=== PATIENT | female | born 1940 | race Caucasian/White ===

== ENCOUNTER 2018-10-21 20:17 | Emergency (ER) | payer MEDICARE, MEDICAID ==
[~2018-10-21 20:17] MED LIST: AMLO10TA4 PO; GABA100C PO; HYDR-523 PO; MEGE800O PO; MIRT15TA PO
== END 2018-10-21 21:17 | disposition left against medical advice (07) ==
LOC: ER 20:17
DX: Z53.21 Procedure and treatment not carried out due to patient leaving prior to being seen by health care provider (principal)

== ENCOUNTER 2018-12-13 10:44 | Inpatient (IN) | payer MEDICARE, MEDICAID ==
[~2018-12-13] VITALS: Ht 121.9 cm; Wt 54.9 kg
[2018-12-13 11:56] LABS: BG BASE EXCESS -6.7 mmol/L (-2.0-2.0); BG CARBOXYHEMOGLOBIN 0.9 % (0.5-1.5); BG DEOXYHEMOGLOBIN 4.5 % (0.0-5.0); BG HCO3 ACT 15.9 mmol/L (22.0-26.0); BG METHEMOGLOBIN 0.1 % (0.0-1.5); BG OXYGEN SATURATION 95.5 % (92.0-98.5); BG OXYHEMOGLOBIN 94.5 % (94.0-97.0); BG PCO2 24.5 mmHg (35.0-45.0); BG PO2 77.5 mmHg (75.0-100.0); BG SAMPLE SITE RIGHT BRACHIAL; BG TOTAL HEMOGLOBIN 12.5 g/dL (12.0-18.0); BG VENT MODE ROOM AIR
[2018-12-13 12:01] LABS: BASOPHILS % 0.3 % (0.0-2.0); EOSINOPHILS % 0.5 % (0.0-5.0); HEMATOCRIT. 37.4 % (36.0-48.0); HEMOGLOBIN. 12.2 g/dL (12.0-16.0); LYMPHOCYTES % 23.6 % (20.0-50.0); MEAN CORPUSCULAR HEMOGLOBIN 30.7 pg (28.0-32.0); MEAN PLATELET VOLUME 9.6 fl (7.4-10.4); MONOCYTES % 7.7 % (2.0-8.0); NEUTROPHILS % 67.9 % (40.0-76.0); PLATELET 283 x1000/uL (130-400); RED BLOOD CELL COUNT 3.98 mill/uL (4.2-5.4); RED CELL DISTRIBUTION WIDTH 17.3 % (11.6-14.6)
[2018-12-13 12:04] LABS: CHLORIDE 113 mEq/L (98-107)
[2018-12-13 12:08] LABS: ETHANOL BLOOD < 10 mg/dL
[2018-12-13 12:09] LABS: CLARITY URINE CLOUDY (CLEAR); COLOR URINE YELLOW (YELLOW); KETONES URINE TRACE (NEGATIVE); LEUKOCYTE ESTERASE URINE NEGATIVE (NEGATIVE); NITRITE URINE NEGATIVE (NEGATIVE); OCCULT BLOOD URINE 2+ (NEGATIVE); PH URINE 5.5 (4.5-8.0); PROTEIN URINE 2+ (NEGATIVE); SPECIFIC GRAVITY URINE 1.023 (1.005-1.030)
[2018-12-13] MEDS ORDERED: AZITHROMYCIN 500 MG in DEXT 5% WATER 250 ML IV STA (13:27)
[2018-12-13] MEDS ORDERED: CEFTRIAXONE 1 G PREMIX 50 ML IV STA (13:27)
[2018-12-13 14:06] LABS: *BARBITURATES SCREEN URINE NEGATIVE (NEGATIVE); *BENZODIAZEPINES SCREEN URINE NEGATIVE (NEGATIVE); *COCAINE SCREEN URINE NEGATIVE (NEGATIVE); PHENCYCLIDINE URINE SCREEN NEGATIVE (NEGATIVE)
[2018-12-13 14:10] LABS: OPIATES URINE SCREEN NEGATIVE (NEGATIVE)
[2018-12-13 14:11] LABS: CANNABINOID URINE SCREEN PRESUMTIVE POSITIVE (NEGATIVE); METHADONE URINE SCREEN NEGATIVE (NEGATIVE)
[2018-12-13] MEDS ORDERED: ACETAMINOPHEN 650MG SUPP PR PRN (16:30)
[2018-12-13] MEDS ORDERED: CLONIDINE 0.1MG TABLET PO PRN (16:30)
[2018-12-13] MEDS ORDERED: ONDANSETRON HCL 4MG/2ML INJ IV PRN (16:30)
[2018-12-13] MEDS ORDERED: MAGNESIUM/ALUMINUM HYDROXIDE/SIMETHICONE 30ML UDC PO PRN (16:30)
[2018-12-13] MEDS ORDERED: LORAZEPAM 0.5MG TABLET PO PRN (16:30)
[2018-12-13] MEDS ORDERED: HYDROCODONE/ACETAMINOPHEN 5/325MG TABLET PO PRN (16:30)
[2018-12-13] MEDS ORDERED: DEXTROSE 50% WATER 50ML SYRINGE IV PRN (16:30)
[2018-12-13] MEDS ORDERED: IPRATROPIUM/ALBUTEROL 0.5-3(2.5)MG/3ML NEB INH PRN (16:30)
[2018-12-13] MEDS ORDERED: ACETAMINOPHEN 650MG/20.3ML UDC GT PRN (16:30)
[2018-12-13] MEDS ORDERED: HYDRALAZINE 20MG/ML VIAL IV NR (16:30)
[2018-12-13] MEDS ORDERED: ACETAMINOPHEN 325MG TABLET PO PRN (16:30)
[2018-12-13] MEDS ORDERED: DOCUSATE SODIUM 100MG CAPSULE PO PRN (16:30)
[2018-12-13] MEDS ORDERED: GUAIFENESIN 200MG/10ML SUGAR FREE UDC PO PRN (16:30)
[2018-12-13] MEDS ORDERED: HYDRALAZINE 20MG/ML VIAL IV PRN (16:30)
[2018-12-13] MEDS ORDERED: DIPHENHYDRAMINE 50MG/ML VIAL IV PRN (16:30)
[2018-12-13] MEDS ORDERED: LEVOFLOXACIN 500MG PREMIX 100 ML IV SCH (20:15)
[2018-12-13] MEDS ORDERED: AMLODIPINE 10MG TABLET PO SCH (20:15)
[2018-12-13] MEDS: INSULIN LISPRO 100 UNITS/ML SUBCUT SCH (20:57)
[2018-12-13] MEDS ORDERED: NA PHOS,M-B/NA PHOS,DI-BA ENEMA 118ML PR PRN (21:00)
[2018-12-13] MEDS: BLOOD SUGAR DIAGNOSTIC STRIP TEST SCH (21:07)
[2018-12-13] MEDS ORDERED: BISACODYL 10MG SUPP PR SCH (23:00)
[2018-12-13] MEDS ORDERED: FAMOTIDINE 20MG/2ML VIAL IV SCH (23:00)
[2018-12-14] VITALS: BP 101/66
[2018-12-14] MEDS: MIRTAZAPINE 15MG TABLET PO SCH ×2 (01:08→23:20)
[2018-12-14] MEDS: DEXT 5%/0.45% NACL 1000ML 1,000 ML IV SCH ×3 (01:44→23:11)
[2018-12-14] MEDS: LEVOFLOXACIN 250MG PREMIX 50 ML IV SCH ×2 (01:44→23:11)
[2018-12-14 03:07] VITALS: BP 146/75
[2018-12-14 05:52] LABS: CHLORIDE 110 mEq/L (98-107)
[2018-12-14] MEDS ORDERED: NA PHOS,M-B/NA PHOS,DI-BA ENEMA 118ML PR ONE (06:00)
[2018-12-14 06:02] LABS: LDL CHOLESTEROL 46 mg/dL (5-100)
[2018-12-14 06:03] LABS: BASOPHILS % 0.1 % (0.0-2.0); EOSINOPHILS % 0.1 % (0.0-5.0); HEMATOCRIT. 39.5 % (36.0-48.0); HEMOGLOBIN. 12.9 g/dL (12.0-16.0); MEAN CORPUSCULAR HEMOGLOBIN 30.7 pg (28.0-32.0); MEAN CORPUSCULAR VOLUME 93.9 fL (81.0-99.0); MONOCYTES % 6.1 % (2.0-8.0); NEUTROPHILS % 80.7 % (40.0-76.0); PLATELET 275 x1000/uL (130-400); RED BLOOD CELL COUNT 4.21 mill/uL (4.2-5.4); RED CELL DISTRIBUTION WIDTH 17.1 % (11.6-14.6)
[2018-12-14 06:04] LABS: HDL CHOLESTEROL 22 mg/dL (40-59); T4 FREE 1.56 ng/dL (0.76-1.46)
[2018-12-14] MEDS: BLOOD SUGAR DIAGNOSTIC STRIP TEST SCH ×4 (07:02→21:00)
[2018-12-14] MEDS: INSULIN LISPRO 100 UNITS/ML SUBCUT SCH ×4 (07:40→21:00)
[2018-12-14 08:00] VITALS: BP 136/74
[2018-12-14] MEDS ORDERED: ENOXAPARIN 40MG/0.4ML SYR SUBCUT SCH (09:00)
[2018-12-14] MEDS: DOCUSATE SODIUM 250MG CAPSULE PO SCH (09:16)
[2018-12-14] MEDS: FAMOTIDINE 20MG/2ML VIAL IV SCH (09:16)
[2018-12-14] MEDS: AMLODIPINE 10MG TABLET PO SCH (09:16)
[2018-12-14] MEDS: IPRATROPIUM/ALBUTEROL 0.5-3(2.5)MG/3ML NEB INH SCH ×3 (10:12→21:50)
[2018-12-14 12:00] VITALS: BP_SYST 109; BP_SYST 118; BP_DIAS 62; BP_DIAS 65
[2018-12-14] MEDS ORDERED: LOSA100T32 MT (12:24)
[2018-12-14] MEDS ORDERED: GABA-531 MT (12:24)
[2018-12-14] MEDS ORDERED: PANT40TA4 MT (12:24)
[2018-12-14] MEDS ORDERED: DONE5TAB33 MT (12:24)
[2018-12-14] MEDS ORDERED: CLOP75TA33 MT (12:24)
[2018-12-14] MEDS ORDERED: ATOR-2 MT (12:24)
[2018-12-14] MEDS ORDERED: ISOS30TA6 MT (12:24)
[2018-12-14] MEDS ORDERED: DULO30CA2 MT (12:24)
[2018-12-14] MEDS ORDERED: POTASSIUM CHLORIDE INJ 40 MEQ in DEXT 5% WATER 250 ML IV SCH (15:00)
[2018-12-14 16:00] VITALS: BP 109/65
[2018-12-14] MEDS ORDERED: LEVOFLOXACIN 500MG PREMIX 100 ML IV SCH (16:30)
[2018-12-14] MEDS ORDERED: ENOXAPARIN 60MG/0.6ML SYR SUBCUT NR (17:15)
[2018-12-14 20:00] VITALS: BP 135/98
[2018-12-15] VITALS (46 sets, daily range): BP systolic 29–147; BP diastolic 16–106
[2018-12-15] MEDS: IPRATROPIUM/ALBUTEROL 0.5-3(2.5)MG/3ML NEB INH SCH ×4 (01:31→20:26)
[2018-12-15] MEDS: INSULIN LISPRO 100 UNITS/ML SUBCUT SCH ×3 (07:16→18:20)
[2018-12-15] MEDS: BLOOD SUGAR DIAGNOSTIC STRIP TEST SCH ×4 (07:17→17:50)
[2018-12-15 08:03] LABS: CHLORIDE 109 mEq/L (98-107)
[2018-12-15 08:05] LABS: HEMATOCRIT. 36.7 % (36.0-48.0); HEMOGLOBIN. 11.9 g/dL (12.0-16.0); MEAN CORPUSCULAR VOLUME 95.2 fL (81.0-99.0); MEAN PLATELET VOLUME 10.2 fl (7.4-10.4); PLATELET 273 x1000/uL (130-400); RED BLOOD CELL COUNT 3.85 mill/uL (4.2-5.4); RED CELL DISTRIBUTION WIDTH 17.3 % (11.6-14.6)
[2018-12-15] MEDS: DOCUSATE SODIUM 250MG CAPSULE PO SCH ×2 (09:00→09:24)
[2018-12-15] MEDS: FAMOTIDINE 20MG/2ML VIAL IV SCH (09:23)
[2018-12-15] MEDS: AMLODIPINE 10MG TABLET PO SCH (09:24)
[2018-12-15] MEDS ORDERED: POTASSIUM CHLORIDE INJ 40 MEQ in DEXT 5% WATER 250 ML IV NR (10:30)
[2018-12-15] MEDS: PIPERACILLIN/TAZ 2.25G PREMIX 50 ML IV SCH ×2 (10:46→17:00)
[2018-12-15] MEDS: DEXT 5%/0.45% NACL 1000ML 1,000 ML IV SCH (10:47)
[2018-12-15] MEDS ORDERED: VANCOMYCIN 1 G PREMIX 200 ML IV SCH (12:00)
[2018-12-15 15:08] LABS: PLATELET ESTIMATE NORMAL
[2018-12-15] MEDS ORDERED: ETOMIDATE 2MG/ML 10ML VIAL IV ONE (16:43)
[2018-12-15] MEDS ORDERED: ENOXAPARIN 60MG/0.6ML SYR SUBCUT SCH (18:00)
[2018-12-15] MEDS ORDERED: SODIUM BICARBONATE 8.4% 1 MEQ/ML 50ML SYR IV NR (18:45)
[2018-12-15] MEDS ORDERED: DOPAMINE 800MG PREMIX (DOUBLE) 250 ML IV PRN (18:45)
[2018-12-15] MEDS ORDERED: PHENYLEPHRINE 40 MG in DEXT 5% WATER 246 ML IV PRN (18:45)
[2018-12-15] MEDS ORDERED: EPINEPHRINE 1 MG in SODIUM CHLORIDE 0.9% 249 ML IV PRN (18:45)
[2018-12-15] MEDS ORDERED: NOREPINEPHRINE 32 MG in DEXT 5% WATER 468 ML IV PRN (18:45)
[2018-12-15] MEDS ORDERED: PHENYLEPHRINE 80 MG in DEXT 5% WATER 492 ML IV PRN ×2 (21:00)
[2018-12-15] MEDS ORDERED: CALCIUM CHLORIDE 1GM/10ML SYR IV ONE (21:20)
[2018-12-15] MEDS ORDERED: SODIUM BICARBONATE 8.4% MEQ/ML 50ML VIAL IV ONE (21:20)
[2018-12-15] MEDS ORDERED: EPINEPHRINE 0.1MG/ML (1:10,000) 10ML SYR ONE (21:20)
[2018-12-16] MEDS ORDERED: VANCOMYCIN 500 MG PREMIX 100 ML IV SCH (06:00)
[2018-12-16 07:57] LABS: *AMPHETAMINES SCREEN URINE NEGATIVE (NEGATIVE)
== END 2018-12-15 22:45 | disposition expired | DRG 871 ==
LOC: ER 10:44 → 8WST 13:40 → EDBEDREQTM 13:43 → EDBEDREQ 13:43 → ENRESERV 20:54 → CVICU 12-15 17:25
PROVIDERS: ADMIT Internal Medicine; ATTEND Internal Medicine
PROC: 0BH17EZ Insertion of Endotracheal Airway into Trachea, Via Natural or Artificial Opening (ICD-10-PCS; principal; 2018-12-15)
PROC: 5A12012 Performance of Cardiac Output, Single, Manual (ICD-10-PCS; 2018-12-15)
PROC: 0XH933Z Insertion of Infusion Device into Left Upper Arm, Percutaneous Approach (ICD-10-PCS; 2018-12-15)
PROC: 5A12012 Performance of Cardiac Output, Single, Manual (ICD-10-PCS; 2018-12-15)
PROC: 5A1935Z Respiratory Ventilation, Less than 24 Consecutive Hours (ICD-10-PCS; 2018-12-15)
PROC: 0YH Anatomical Regions, Lower Extremities, Insertion (ICD-10-PCS; 2018-12-15)
PROC: 3E0A3GC Introduction of Other Therapeutic Substance into Bone Marrow, Percutaneous Approach (ICD-10-PCS; 2018-12-15)
PROC: 3E0A3GC Introduction of Other Therapeutic Substance into Bone Marrow, Percutaneous Approach (ICD-10-PCS; 2018-12-15)
DX: A41.9 Sepsis, unspecified organism (principal); G93.41 Metabolic encephalopathy; J18.1 Lobar pneumonia, unspecified organism; R65.21 Severe sepsis with septic shock; I42.9 Cardiomyopathy, unspecified; I50.22 Chronic systolic (congestive) heart failure; N39.0 Urinary tract infection, site not specified; E11.51 Type 2 diabetes mellitus with diabetic peripheral angiopathy without gangrene; E11.65 Type 2 diabetes mellitus with hyperglycemia; E78.00 Pure hypercholesterolemia, unspecified; E86.0 Dehydration; F03.90 Unspecified dementia, unspecified severity, without behavioral disturbance, psychotic disturbance, mood disturbance, and anxiety; F17.210 Nicotine dependence, cigarettes, uncomplicated; I11.0 Hypertensive heart disease with heart failure; I16.0 Hypertensive urgency; I25.10 Atherosclerotic heart disease of native coronary artery without angina pectoris; K80.20 Calculus of gallbladder without cholecystitis without obstruction; I27.20 Pulmonary hypertension, unspecified; I46.9 Cardiac arrest, cause unspecified; K22.9 Disease of esophagus, unspecified; K57.30 Diverticulosis of large intestine without perforation or abscess without bleeding; K59.00 Constipation, unspecified; Z79.02 Long term (current) use of antithrombotics/antiplatelets; Z79.899 Other long term (current) drug therapy; Z86.73 Personal history of transient ischemic attack (TIA), and cerebral infarction without residual deficits; Z89.512 Acquired absence of left leg below knee; Z98.61 Coronary angioplasty status; Z89.511 Acquired absence of right leg below knee; Z89.611 Acquired absence of right leg above knee
CPT/HCPCS: 31500; 36415; 36556; 36600; 36680; 71045; 74176; 80048; 80061; 80305; 80307; 80320; 80329; 82375; 82378; 82805; 82962; 83036; 83605; 83880; 84439; 84443; 84484; 87070; 87077; 92610; 92950; 93306; 93970; 94002; 94640; 96365; 99291; C1893; J0360; J0456; J0696; J1265; J1650; J1815; J1956; J2370; J2405; J2543; J3370; J3480; J3490; J7050; J7060; J7620; A4315; G0480